=== PATIENT | female | born 1970 | race African-American/Black ===

== ENCOUNTER 2016-11-06 14:00 | Inpatient (IN) | payer OTHER ==
[~2016-11-06] VITALS: Ht 162.6 cm; Wt 83.5 kg
[2016-11-06] MEDS ORDERED: ONDANSETRON HCL 4 MG/2 ML VIAL IVP ONE (15:30)
[2016-11-06] MEDS ORDERED: MAGNESIUM SULFATE 4 GM/WATER 100 ML IV ONE (15:30)
[2016-11-06] MEDS ORDERED: LABETALOL HCL 5 MG/ML 20 ML VIAL IVP ONE (15:30)
[2016-11-06] MEDS ORDERED: ONDANSETRON HCL 4 MG/2 ML VIAL IM PRN (15:45)
[2016-11-06] MEDS ORDERED: LABETALOL HCL 200 MG in DEXTROSE 5%-WATER 160 ML IV PRN (15:45)
[2016-11-06] MEDS ORDERED: CALCIUM GLUCONATE 100 MG/ML 10 ML IVP PRN (15:45)
[2016-11-06] MEDS ORDERED: LORazepam 2 MG TABLET PO PRN (15:45)
[2016-11-06] MEDS: HydrALAZINE HCL 25 MG TABLET PO SCH ×2 (15:54→20:10)
[2016-11-06 16:16] VITALS: BP 171/118
[2016-11-06] MEDS: MAGNESIUM SULFATE 500 ML IV SCH (17:02)
[2016-11-06 18:17] LABS: BASOPHILS # (AUTO) 0.01 K/uL (0.00-0.20); BASOPHILS % (AUTO) 0.1 % (0.0-2.0); EOSINOPHILS # (AUTO) 0.03 K/uL (0.00-0.70); EOSINOPHILS % (AUTO) 0.44 % (1.0-6.0); HEMATOCRIT 34.7 % (36-46); HEMOGLOBIN 11.6 g/dL (12.0-16.0); LYMPHOCYTES # (AUTO) 1.3 K/uL (1.0-4.8); LYMPHOCYTES % (AUTO) 18.9 % (22.0-44.0); MEAN CORPUSCULAR HEMOGLOBIN 29.3 pg (26.0-34.0); MEAN CORPUSCULAR HGB CONC 33.3 G/dL (31.0-37.0); MEAN CORPUSCULAR VOLUME 88 fL (80-100); MONOCYTES # (AUTO) 0.3 K/uL (0.1-1.0); NEUTROPHILS % (AUTO) 75.6 % (40.0-70.0); PLATELET COUNT (AUTO) 192 K/uL (150-450); RED BLOOD CELL COUNT(AUTO) 3.94 MIL/uL (4.00-5.20); RED CELL DISTRIBUTION WIDTH 13.7 % (11.5-14.5); WHITE BLOOD COUNT (AUTO) 6.7 K/uL (4.5-11.0)
[2016-11-06 18:24] LABS: INR 0.9 (0.9-1.1); PROTHROMBIN TIME 9.7 SEC (9.4-11.6)
[2016-11-06 18:26] LABS: ANION GAP 11 mmol/L (8-16); CALCIUM, TOTAL 8.7 mg/dL (8.8-10.5); CARBON DIOXIDE 22 mmol/L (22-29); CHLORIDE 105 mmol/L (98-107); CREATININE 0.54 mg/dL (0.60-1.30); GLOMERULAR FILTR. RATE CALC > 60 mL/min (>60); POTASSIUM 3.4 mmol/L (3.5-5.1); SODIUM SERUM 138 mmol/L (136-145); UREA NITROGEN, BLOOD 6 mg/dL (7-18)
[2016-11-06 18:29] LABS: GLUCOSE, URINE (UA) NEGATIVE (NEGATIVE); KETONES,URINE NEGATIVE (NEGATIVE); LEUKOCYTE ESTERASE ,URINE NEGATIVE (NEGATIVE); OCCULT BLOOD,URINE NEGATIVE (NEGATIVE); PH,URINE 6.5 (5.0-8.0); PROTEIN,URINE NEGATIVE (NEGATIVE)
[2016-11-06 18:32] LABS: ADD UA MICROSCOPIC NO; APPEARANCE,URINE CLEAR (CLEAR)
[2016-11-06 18:44] LABS: ALANINE AMINOTRANSFERASE 35 U/L (12-78); ALBUMIN 2.8 g/dL (3.4-5.0); ASPARTATE AMINOTRANSFERASE 30 U/L (15-37); BILIRUBIN,TOTAL 0.8 mg/dL (0.1-1.0); TOTAL PROTEIN, SERUM 6.6 g/dL (6.4-8.2)
[2016-11-06] MEDS ORDERED: BETAMETHASONE SOLUSPAN 6 MG/ML 5 ML VIAL IM SCH (18:45)
[2016-11-06 19:14] LABS: URIC ACID 4.6 mg/dL (2.6-7.2)
[2016-11-06 20:00] VITALS: BP 160/108
[2016-11-06] MEDS ORDERED: CLINDAMYCIN PHOS 150 MG/ML 4 ML VIAL ONE ×2 (23:04→23:05)
[2016-11-06] MEDS ORDERED: SODIUM CHLORIDE 0.9% 100 ML ONE ×2 (23:05→23:25)
[2016-11-06] MEDS ORDERED: GENTAMICIN SULFATE 40 MG/ML 2 ML VIAL IM ONE (23:24)
[2016-11-07] MEDS ORDERED: GUM MASTIC/STORAX/MSAL/ALCOHOL LIQUID 0.67 ML VIAL TP ONE (00:22)
[2016-11-07] MEDS ORDERED: SILVER NITRATE APPLICATOR 1 EA STICK TP ONE (00:31)
[2016-11-07] MEDS ORDERED: DEXTROSE 5%-0.45% SODIUM CHL 1,000 ML IV SCH (00:53)
[2016-11-07] MEDS ORDERED: GLYCERIN/WITCH HAZEL LEAF 40 PADS JAR TP PRN (01:00)
[2016-11-07] MEDS ORDERED: FentaNYL CITRATE-PF 100 MCG/2 ML VIAL IVP PRN ×3 (01:15)
[2016-11-07] MEDS ORDERED: DiphenhydrAMINE HCL 50 MG/ML VIAL IVP PRN ×2 (01:15)
[2016-11-07] MEDS ORDERED: MEPERIDINE-PF 25 MG/ML SYRINGE IVP PRN (01:15)
[2016-11-07] MEDS ORDERED: ONDANSETRON HCL 4 MG/2 ML VIAL IVP PRN ×2 (01:15)
[2016-11-07] MEDS ORDERED: DEXAMETHASONE SOD PHOS 4 MG/ML VIAL IVP PRN (01:15)
[2016-11-07] MEDS ORDERED: PROMETHAZINE HCL 12.5 MG in SODIUM CHLORIDE 0.9% 50 ML IV PRN (01:15)
[2016-11-07] MEDS ORDERED: NALOXONE HCL 0.4 MG/ML VIAL IVP PRN (01:15)
[2016-11-07] MEDS: OXYTOCIN 20 UNITS/LACT RINGERS 1,000 ML IV SCH ×2 (02:37→16:45)
[2016-11-07] MEDS: MAGNESIUM SULFATE 500 ML IV SCH ×2 (02:39→14:15)
[2016-11-07 02:54] LABS: RAPID PLASMA REAGIN NONREACTIVE (NONREACTIVE); RUBELLA SCREEN (IGG) IMMUNE (IMMUNE)
[2016-11-07] MEDS ORDERED: OXYGEN THERAPY IH SCH (08:00)
[2016-11-07] MEDS: LABETALOL HCL 200 MG TABLET PO SCH (09:54)
[2016-11-07] MEDS: PANTOPRAZOLE SODIUM 40 MG DR TABLET PO SCH (09:54)
[2016-11-07] MEDS: LORazepam 1 MG TABLET PO PRN ×3 (10:23→20:05)
[2016-11-07] MEDS: LABETALOL HCL 200 MG TABLET PO PRN (21:37)
[2016-11-08] MEDS: IBUPROFEN 600 MG TABLET PO PRN ×2 (06:31→15:25)
[2016-11-08 06:48] LABS: BASOPHILS % (AUTO) 0.2 % (0.0-2.0); EOSINOPHILS % (AUTO) 0.1 % (1.0-6.0); HEMATOCRIT 29.5 % (36-46); HEMOGLOBIN 9.8 g/dL (12.0-16.0); LYMPHOCYTES # (AUTO) 1.1 K/uL (1.0-4.8); LYMPHOCYTES % (AUTO) 9.8 % (22.0-44.0); MEAN CORPUSCULAR HEMOGLOBIN 29.2 pg (26.0-34.0); MEAN CORPUSCULAR HGB CONC 33.3 G/dL (31.0-37.0); MEAN CORPUSCULAR VOLUME 88 fL (80-100); MONOCYTES # (AUTO) 0.7 K/uL (0.1-1.0); MONOCYTES % (AUTO) 6.6 % (2.0-9.0); NEUTROPHILS % (AUTO) 83.3 % (40.0-70.0); RED BLOOD CELL COUNT(AUTO) 3.36 MIL/uL (4.00-5.20); RED CELL DISTRIBUTION WIDTH 13.8 % (11.5-14.5); WHITE BLOOD COUNT (AUTO) 10.8 K/uL (4.5-11.0)
[2016-11-08] MEDS: PANTOPRAZOLE SODIUM 40 MG DR TABLET PO SCH (09:13)
[2016-11-08] MEDS: MAGNESIUM HYDROXIDE SUSPENSION 30 ML UDCUP PO SCH ×2 (09:13→21:00)
[2016-11-08] MEDS: LORazepam 1 MG TABLET PO PRN ×3 (09:14→20:12)
[2016-11-08] MEDS: LABETALOL HCL 200 MG TABLET PO SCH ×2 (09:15→20:39)
[2016-11-08] MEDS ORDERED: LABETALOL HCL 5 MG/ML 20 ML VIAL IVP ONE (12:15)
[2016-11-08 12:23] VITALS: BP 159/113
[2016-11-09] MEDS: IBUPROFEN 600 MG TABLET PO PRN ×2 (02:42→09:42)
[2016-11-09] MEDS: LORazepam 1 MG TABLET PO PRN ×3 (08:15→20:11)
[2016-11-09] MEDS: PANTOPRAZOLE SODIUM 40 MG DR TABLET PO SCH (08:16)
[2016-11-09] MEDS: LABETALOL HCL 200 MG TABLET PO SCH ×2 (08:16→20:23)
[2016-11-09] MEDS: MAGNESIUM HYDROXIDE SUSPENSION 30 ML UDCUP PO SCH ×2 (08:16→21:00)
[2016-11-09] MEDS: OxyCODONE HCL/ACETAMINOPHEN 5-325 MG TABLET PO PRN ×4 (09:42→20:22)
[2016-11-09] MEDS ORDERED: HydrALAZINE HCL 20 MG/ML VIAL ONE (13:42)
[2016-11-09] MEDS ORDERED: LABETALOL HCL 200 MG TABLET PO SCH (21:00)
[2016-11-10] MEDS: LORazepam 1 MG TABLET PO PRN ×3 (04:32→16:55)
[2016-11-10] MEDS: OxyCODONE HCL/ACETAMINOPHEN 5-325 MG TABLET PO PRN ×4 (04:32→22:07)
[2016-11-10] MEDS: MAGNESIUM HYDROXIDE SUSPENSION 30 ML UDCUP PO SCH ×2 (09:00→21:00)
[2016-11-10] MEDS: PANTOPRAZOLE SODIUM 40 MG DR TABLET PO SCH (09:12)
[2016-11-10] MEDS: LABETALOL HCL 200 MG TABLET PO PRN (09:17)
[2016-11-10] MEDS: LABETALOL HCL 200 MG TABLET PO SCH ×2 (09:36→20:36)
[2016-11-10] MEDS: IBUPROFEN 600 MG TABLET PO PRN ×2 (11:40→20:43)
[2016-11-10 15:20] LABS: BASOPHILS % (AUTO) 0.9 % (0.0-2.0); EOSINOPHILS % (AUTO) 1.2 % (1.0-6.0); HEMATOCRIT 29.8 % (36-46); HEMOGLOBIN 9.7 g/dL (12.0-16.0); LYMPHOCYTES # (AUTO) 1.8 K/uL (1.0-4.8); LYMPHOCYTES % (AUTO) 22.1 % (22.0-44.0); MEAN CORPUSCULAR HGB CONC 32.5 G/dL (31.0-37.0); MEAN CORPUSCULAR VOLUME 89 fL (80-100); MONOCYTES # (AUTO) 0.6 K/uL (0.1-1.0); MONOCYTES % (AUTO) 7.5 % (2.0-9.0); NEUTROPHILS # (AUTO) 5.6 K/uL (1.8-7.7); NEUTROPHILS % (AUTO) 68.3 % (40.0-70.0); RED BLOOD CELL COUNT(AUTO) 3.34 MIL/uL (4.00-5.20); RED CELL DISTRIBUTION WIDTH 14.1 % (11.5-14.5); WHITE BLOOD COUNT (AUTO) 8.2 K/uL (4.5-11.0)
[2016-11-10 15:39] LABS: ALANINE AMINOTRANSFERASE 33 U/L (12-78); ALBUMIN 2.7 g/dL (3.4-5.0); ANION GAP 11 mmol/L (8-16); ASPARTATE AMINOTRANSFERASE 25 U/L (15-37); BILIRUBIN,TOTAL 0.7 mg/dL (0.1-1.0); CALCIUM, TOTAL 8.9 mg/dL (8.8-10.5); CARBON DIOXIDE 25 mmol/L (22-29); CHLORIDE 103 mmol/L (98-107); CREATININE 0.64 mg/dL (0.60-1.30); GLOMERULAR FILTR. RATE CALC > 60 mL/min (>60); POTASSIUM 3.7 mmol/L (3.5-5.1); SODIUM SERUM 139 mmol/L (136-145); TOTAL PROTEIN, SERUM 6.5 g/dL (6.4-8.2); UREA NITROGEN, BLOOD 8 mg/dL (7-18)
[2016-11-10] MEDS ORDERED: HydrALAZINE HCL 20 MG/ML VIAL IVP ONE (16:45)
[2016-11-11] MEDS: OxyCODONE HCL/ACETAMINOPHEN 5-325 MG TABLET PO PRN ×4 (05:42→20:33)
[2016-11-11] MEDS: LABETALOL HCL 200 MG TABLET PO SCH ×2 (05:55→18:08)
[2016-11-11] MEDS: LORazepam 1 MG TABLET PO PRN ×3 (06:43→23:42)
[2016-11-11] MEDS ORDERED: PNEUMOCOCCAL VACCINE POLYVALENT 0.5 ML VIAL [PPSV23] IM ONE (07:45)
[2016-11-11] MEDS: MAGNESIUM HYDROXIDE SUSPENSION 30 ML UDCUP PO SCH ×2 (09:00→20:33)
[2016-11-11] MEDS: IBUPROFEN 600 MG TABLET PO PRN ×3 (09:08→23:43)
[2016-11-11] MEDS: NIFEdipine 30 MG ER TABLET PO SCH (09:08)
[2016-11-11] MEDS ORDERED: HydrALAZINE HCL 20 MG/ML VIAL IVP ONE (13:00)
[2016-11-12] MEDS: LABETALOL HCL 200 MG TABLET PO SCH (05:40)
[2016-11-12] MEDS: IBUPROFEN 600 MG TABLET PO PRN ×2 (05:41→12:13)
[2016-11-12] MEDS: LORazepam 1 MG TABLET PO PRN (05:41)
[2016-11-12] MEDS: MAGNESIUM HYDROXIDE SUSPENSION 30 ML UDCUP PO SCH (08:56)
[2016-11-12] MEDS: NIFEdipine 30 MG ER TABLET PO SCH (08:56)
[2016-11-12] MEDS: OxyCODONE HCL/ACETAMINOPHEN 5-325 MG TABLET PO PRN (12:13)
[2016-11-12] MEDS ORDERED: NIFE30TA5 PO (12:50)
[2016-11-12] MEDS ORDERED: LABE200T PO (12:50)
[2016-11-12] MEDS ORDERED: PERCT PO (12:50)
[2016-11-12] MEDS ORDERED: IBUP-1547 PO (12:52)
[2016-11-12] MEDS ORDERED: DSS100 PO (12:52)
[2016-11-12] MEDS ORDERED: FERR-89 PO (13:01)
== END 2016-11-12 15:25 | disposition home or self-care (01) | DRG 540 ==
LOC: 4S 14:00 → OBSVTOIN 14:00 → ICU 15:31 → 4S 11-07 00:46
PROVIDERS: ADMIT Obstetrics & Gynecology; ATTEND Obstetrics & Gynecology
PROC: 10D00Z1 Extraction of Products of Conception, Low, Open Approach (ICD-10-PCS; principal; 2016-11-07)
DX: O60.12X0 Preterm labor second trimester with preterm delivery second trimester, not applicable or unspecified (principal); O15.1 Eclampsia complicating labor; O77.0 Labor and delivery complicated by meconium in amniotic fluid; O34.211 Maternal care for low transverse scar from previous cesarean delivery; O10.02 Pre-existing essential hypertension complicating childbirth; O09.522 Supervision of elderly multigravida, second trimester; Z3A.25 25 weeks gestation of pregnancy; Z37.0 Single live birth; Z88.0 Allergy status to penicillin; Z88.1 Allergy status to other antibiotic agents
CPT/HCPCS: 80307; 82570; 83735; 84156; 84550; 85384; 86592; 86762; 86850; 86900; 86901; 86920; 87081; 87340; 93005; J0360; J0610; J0702; J1200; J1580; J3475; J3490; J7050; J7060; S0077

== ENCOUNTER 2016-11-16 19:17 | Emergency (ER) | payer OTHER ==
[~2016-11-16] VITALS: Ht 162.6 cm; Wt 69.0 kg
[~2016-11-16 19:17] MED LIST: DSS100 PO; FERR-89 PO; IBUP-1547 PO; LABE200T PO; NIFE30TA5 PO; PERCT PO
[2016-11-16 21:32] LABS: BASOPHILS # (AUTO) 0.06 K/uL (0.00-0.20); BASOPHILS % (AUTO) 0.6 % (0.0-2.0); EOSINOPHILS # (AUTO) 0.15 K/uL (0.00-0.70); EOSINOPHILS % (AUTO) 1.52 % (1.0-6.0); HEMATOCRIT 31.5 % (36-46); HEMOGLOBIN 10.2 g/dL (12.0-16.0); LYMPHOCYTES # (AUTO) 1.5 K/uL (1.0-4.8); LYMPHOCYTES % (AUTO) 14.9 % (22.0-44.0); MEAN CORPUSCULAR HEMOGLOBIN 28.8 pg (26.0-34.0); MEAN CORPUSCULAR HGB CONC 32.3 G/dL (31.0-37.0); MEAN CORPUSCULAR VOLUME 89 fL (80-100); MONOCYTES # (AUTO) 0.7 K/uL (0.1-1.0); MONOCYTES % (AUTO) 6.9 % (2.0-9.0); NEUTROPHILS # (AUTO) 7.5 K/uL (1.8-7.7); PLATELET COUNT (AUTO) 264 K/uL (150-450); RED BLOOD CELL COUNT(AUTO) 3.53 MIL/uL (4.00-5.20); RED CELL DISTRIBUTION WIDTH 13.6 % (11.5-14.5); WHITE BLOOD COUNT (AUTO) 9.9 K/uL (4.5-11.0)
[2016-11-16 21:39] LABS: ANION GAP 12 mmol/L (8-16); CALCIUM, TOTAL 8.9 mg/dL (8.8-10.5); CARBON DIOXIDE 24 mmol/L (22-29); CHLORIDE 104 mmol/L (98-107); CREATININE 0.68 mg/dL (0.60-1.30); GLOMERULAR FILTR. RATE CALC > 60 mL/min (>60); POTASSIUM 3.7 mmol/L (3.5-5.1); SODIUM SERUM 140 mmol/L (136-145); UREA NITROGEN, BLOOD 9 mg/dL (7-18)
[2016-11-16 22:03] VITALS: BP 134/88
== END 2016-11-16 22:39 | disposition home or self-care (01) ==
LOC: EMS 19:19
DX: N39.0 Urinary tract infection, site not specified (principal); I10 Essential (primary) hypertension; F17.210 Nicotine dependence, cigarettes, uncomplicated; Z88.5 Allergy status to narcotic agent; Z88.0 Allergy status to penicillin
CPT/HCPCS: 99284; 99406